=== PATIENT | female | born 1990 | race American Indian/Alaskan Native ===

== ENCOUNTER 2020-03-25 12:37 | Emergency (ER) | payer MEDICAID ==
--- NOTE | 2020-03-25 13:00 | Event Note ---
ED Screening Note Date of service: 03/25/20 Time: 12:57 ED Screening Note: 29-year-old -Congolese female presents to the emergency room reporting shortness of breath. Patient is still anxious, crying, states that she cannot feel her fingers. Patient also noted to have a rapid breathing pattern shaking her legs. Denies any past medical history or chest pain. This initial assessment/diagnostic orders/clinical plan/treatment(s) is/are subject to change based on patients health status, clinical progression and re- assessment by fellow clinical providers in the ED. Further treatment and workup at subsequent clinical providers discretion. Patient/guardian urged not to elope from the ED as their condition may be serious if not clinically assessed and managed. Initial orders include:
--- NOTE | 2020-03-25 14:09 | XRay Report ---
CHEST PA AND LATERAL VIEWS INDICATION: sob,cough and rales. COMPARISON: 04/07/2008 FINDINGS: Support devices: None Heart: Normal and unchanged Lungs/Pleura: No acute pulmonary or pleural findings. IMPRESSION: 1. No acute disease and no interval change. Signer Name: Zheng Macias MD Signed: 03/25/2020 2:05 PM Workstation Name: [id number]
[2020-03-25 14:25] LABS: Basophils % (Auto) 0.6 % (0.0-1.8); Eosinophils % (Auto) 0.4 % (0.0-4.3); Hemoglobin 13.1 gm/dl (10.1-14.3); Lymphocytes # (Auto) 0.8 K/mm3 (1.2-5.4); Lymphocytes % (Auto) 20.2 % (13.4-35.0); Mean Corpuscular HGB Conc 34 % (30-34); Mean Corpuscular Volume 98 fl (79-97); Monocytes # (Auto) 0.4 K/mm3 (0.0-0.8); Monocytes % (Auto) 10.4 % (0.0-7.3); Platelet Count 179 K/mm3 (140-440); Red Blood Count 3.96 M/mm3 (3.65-5.03); Red Cell Distribution Width 14.3 % (13.2-15.2)
[2020-03-25 14:33] LABS: Alanine Aminotransferase 112 units/L (7-56); Albumin 4.7 g/dL (3.9-5); Blood Urea Nitrogen 4 mg/dL (7-17); Calcium 9.8 mg/dL (8.4-10.2); Hemolysis Index 4
[2020-03-25 14:34] LABS: BUN/Creatinine Ratio 7
[2020-03-25] MEDS ORDERED: ONDANSETRON 4 MG/2 ML INJ IV ONE (17:00)
--- NOTE | 2020-03-25 17:06 | Emergency Department Report ---
<ALE ROUSSEAU - Last Filed: 03/25/20 19:06> ED General Adult HPI - General Chief complaint: Dyspnea/Respdistress Stated complaint: SHORTNESS OF BREATH PUI?: No Time Seen by Provider: 03/25/20 16:20 Source: patient Mode of arrival: Ambulatory Limitations: No Limitations - History of Present Illness Initial comments: 29-year-old female with a history of anemia but otherwise no significant past medical history presents to the ER today complaint of not feeling well. Patient states that when she got to work this morning she started shaking all over, feeling lightheaded, dizzy, palpitations, substernal chest pressure and shortness of breath. She states that she did vomit once this morning. Patient denies any history of psych disorders including anxiety or depression but she does report increased stress at work. She denies any URI symptoms, fever, chills, cough, calf pain or leg swelling. She denies any UTI symptoms, vaginal symptoms or abdominal pain. She states that her last menstrual cycle was 2 weeks ago. She denies any illicit drug use, significant caffeine use, or alcohol abuse. She denies similar symptoms in the past. MD Complaint: "shaking" all over, lightheaded, chest pain, SOB, vomiting -: Sudden (this morning) Location: chest Severity scale (0 -10): 0 - Related Data Previous Rx's Medication Instructions Recorded Last Taken Type Fluconazole (Nf) [Diflucan TAB] 150 mg PO ONCE #2 tablet 03/25/20 Unknown Rx Ibuprofen [Motrin] 600 mg PO Q8H PRN #30 tablet 03/25/20 Unknown Rx cephALEXin [Keflex] 500 mg PO Q8HR #30 cap 03/25/20 Unknown Rx hydrOXYzine HCL [Atarax] 25 mg PO BID PRN #20 tablet 03/25/20 Unknown Rx Allergies Allergy/AdvReac Type Severity Reaction Status Date / Time No Known Allergies Allergy Unverified 10/03/15 07:22 ED Review of Systems Constitutional: denies: chills, fever ENT: denies: ear pain, throat pain Respiratory: shortness of breath. denies: cough, wheezing Cardiovascular: chest pain Endocrine: no symptoms reported Gastrointestinal: nausea, vomiting. denies: abdominal pain, diarrhea, constipation, hematemesis, hematochezia Genitourinary: denies: urgency, dysuria, discharge Musculoskeletal: denies: back pain, joint swelling, arthralgia Neurological: other (dizzy, "shaking all over") Psychiatric: anxiety. denies: depression, auditory hallucinations, visual hallucinations, homicidal thoughts, suicidal thoughts ED Past Medical Hx - Past Medical History Previous Medical History?: No - Surgical History Past Surgical History?: No - Social History Smoking Status: Never Smoker Substance Use Type: None - Medications Home Medications: Home Medications Medication Instructions Recorded Confirmed Last Taken Type Fluconazole (Nf) [Diflucan TAB] 150 mg PO ONCE #2 tablet 03/25/20 Unknown Rx Ibuprofen [Motrin] 600 mg PO Q8H PRN #30 tablet 03/25/20 Unknown Rx cephALEXin [Keflex] 500 mg PO Q8HR #30 cap 03/25/20 Unknown Rx hydrOXYzine HCL [Atarax] 25 mg PO BID PRN #20 tablet 03/25/20 Unknown Rx ED Physical Exam - General Limitations: No Limitations General appearance: alert, in no apparent distress - Head Head exam: Present: atraumatic, normocephalic, normal inspection - Eye Eye exam: Present: normal appearance, PERRL, EOMI Pupils: Present: normal accommodation - ENT ENT exam: Present: normal exam, mucous membranes moist - Neck Neck exam: Present: normal inspection, full ROM. Absent: tenderness, meningismus - Respiratory Respiratory exam: Present: normal lung sounds bilaterally. Absent: respiratory distress - Cardiovascular Cardiovascular Exam: Present: normal rhythm, tachycardia, normal heart sounds - GI/Abdominal GI/Abdominal exam: Present: soft. Absent: distended, tenderness - Extremities Exam Extremities exam: Absent: pedal edema, calf tenderness - Neurological Exam Neurological exam: Present: alert, oriented X3, CN II-XII intact, normal gait - Psychiatric Psychiatric exam: Present: normal affect, normal mood - Skin Skin exam: Present: intact ED Medical Decision Making - Lab Data Result diagrams: 03/25/20 13:28 03/25/20 13:23 - EKG Data EKG shows normal: sinus rhythm Rate: tachycardia (120) - Radiology Data Radiology results: report reviewed - Medical Decision Making 1850 -- Pt resting comfortably, and does not appear to be in any distress. She reports some mild pressure in chest but otherwise she feels better. CXR shows nothing acute. Pt HR improved during stay, now down to 97. She is afebrile, with nl pulse Ox and respiratory rate. Pt does not appear toxic or ill appearing nor significantly dehydrated. She is currently mentally stable and neurologically intact. Reviewed her labs, AST/ALT elevated at 125/112 (pt reports she only drinks occasionally), otherwise remaining labs including trop, ddimer and tsh wnl. Exact cause of patient's symptoms unclear at this time it could be anxiety/stress related but there is no indication any further testing, for admi ssion, or emergent consult at this time. Discussed results with patient she will be given referral to local primary care doctor for follow-up; patient was stable at time of discharge. Patient expressed understanding of instructions and agree with plan. ED Disposition Clinical Impression: Acute urinary tract infection, Anxiety as acute reaction to exceptional stress, Episode of shaking, Atypical chest pain Disposition: TO HOME OR SELFCARE Is pt being admited?: No Does the pt Need Aspirin: No Condition: Stable Instructions: Nonspecific Chest Pain, Adult, [id number], Panic Attack, Chest Pain (ED), Urinary Tract Infection, Adult, [id number] Additional Instructions: Take the medication prescribed to you as directed. I recommend that you follow- up with the primary care doctor listed on your discharge instructions next week. Return to the ER if your symptoms changes or worsens in any way. Prescriptions: hydrOXYzine HCL [Atarax] 25 mg PO BID PRN #20 tablet PRN Reason: Anxiety/Shaking Fluconazole (Nf) [Diflucan TAB] 150 mg PO ONCE #2 tablet cephALEXin [Keflex] 500 mg PO Q8HR #30 cap Ibuprofen [Motrin] 600 mg PO Q8H PRN #30 tablet PRN Reason: Pain Referrals: NELL LANG MD [Staff Physician] - 3-5 Days Forms: Work/School Release Form(ED) Time of Disposition: 19:12 Print Language: COMORAN <MITESH BERNAL - Last Filed: 03/25/20 20:01> ED Review of Systems ROS: Stated complaint: SHORTNESS OF BREATH Other details as noted in HPI ED Course Vital Signs 03/25/20 03/25/20 12:39 18:57 Temperature 98.2 F 98.2 F Pulse Rate 142 H 84 Respiratory 24 20 Rate Blood Pressure 157/101 142/88 [Right] O2 Sat by Pulse 100 100 Oximetry ED Medical Decision Making - Lab Data Result diagrams: 03/25/20 13:28 03/25/20 13:23 - Medical Decision Making I think of the patient from Ms. Kaela Leblanc PA-C at shift change at 1900 hrs. Patient had been in the ED with complaint of acute onset tachycardia, anxi ety symptoms and was worked up thoroughly for PE rule out as well as any cardiopulmonary abnormalities. On reevaluation, patient's vital signs improved significantly with tachycardia resolving, lab test results were reviewed and showed transaminitis and UTI with a negative D-dimer and troponin levels. Patient was discharged home on medications including antibiotics for UTI. Patient was discharged home and advised to follow-up with her primary care physician in 7 to 10 days for reevaluation or return to the ED immediately if symptoms get worse. - Differential Diagnosis UTI; dehydration; anxiety; PE; ACS; Critical care attestation.: If time is entered above; I have spent that time in minutes in the direct care of this critically ill patient, excluding procedure time.
[2020-03-25] MEDS ORDERED: SODIUM CHLORIDE 0.9% 1000 ML 1,000 ML IV ONE (17:08)
[2020-03-25] MEDS ORDERED: KETOROLAC 30 MG/1 ML INJ IV ONE (18:51)
[2020-03-25 18:59] VITALS: BP 142/88
[2020-03-25 19:05] LABS: Amphetamine Screen,Urine PRESUMPTIVE NEGATIVE; Benzodiazepines Screen,Urine PRESUMPTIVE NEGATIVE; Cannabinoid Screen,Urine PRESUMPTIVE NEGATIVE; Cocaine Screen,Urine PRESUMPTIVE NEGATIVE; Methadone Screen,Urine PRESUMPTIVE NEGATIVE; Opiate Screen,Urine PRESUMPTIVE NEGATIVE
[2020-03-25 19:17] LABS: Bacteria,Urine 1+ /HPF (Negative); Bilirubin,Urine NEG (Negative); Blood,Urine NEG (Negative); Color,Urine Yellow (Yellow); Hyaline Casts,Urine 2 /LPF; Mucus,Urine FEW /HPF; Protein,Urine <15 mg/dL mg/dL (Negative); Urobilinogen,Urine < 2.0 mg/dL (<2.0)
== END 2020-03-25 20:13 | disposition home or self-care (01) ==
LOC: ED 12:37
DX: N39.0 Urinary tract infection, site not specified (principal); F41.1 Generalized anxiety disorder; F43.0 Acute stress reaction; R07.89 Other chest pain; R25.1 Tremor, unspecified; Z79.1 Long term (current) use of non-steroidal anti-inflammatories (NSAID); Z79.899 Other long term (current) drug therapy
CPT/HCPCS: 36415; 71046; 80053; 80307; 81001; 84443; 84484; 84703; 85025; 85379; 87086; 93005; 96361; 96374; 96375; 99284; J1885; J2405; J7030

== ENCOUNTER 2021-08-04 09:12 | Emergency (ER) | payer MEDICAID ==
[2021-08-04 09:27] VITALS: BP 125/74
--- NOTE | 2021-08-04 09:34 | Emergency Department Report ---
ED ENT HPI - General Chief complaint: Dental/Oral Stated complaint: DENTAL PAIN Time Seen by Provider: 08/04/21 09:33 Source: patient Mode of arrival: Ambulatory Limitations: No Limitations - History of Present Illness Initial comments: Patient is a 30-year-old female that comes to the emergency department with left lower molar pain. She does have a dentist appointment next Saturday. However the pain is so bad that she comes to the ER. A dentist that she is seeing did not put her on antibiotics. ABCs intact. Vital signs stable. No trismus. No Ludewig's. No abscess. Patient controlling secretions. MD complaint: tooth pain -: Gradual, days(s) Severity: moderate Severity scale (0 -10): 6 Quality: aching Consistency: constant Improves with: none Worsens with: none Context- Dental: history of dental caries Associated Symptoms: toothache - Related Data Previous Rx's Medication Instructions Recorded Last Taken Type Fluconazole (Nf) [Diflucan TAB] 150 mg PO ONCE #2 tablet 03/25/20 Unknown Rx Ibuprofen [Motrin] 600 mg PO Q8H PRN #30 tablet 03/25/20 Unknown Rx cephALEXin [Keflex] 500 mg PO Q8HR #30 cap 03/25/20 Unknown Rx hydrOXYzine HCL [Atarax] 25 mg PO BID PRN #20 tablet 03/25/20 Unknown Rx Amoxicillin [Trimox CAP] 500 mg PO BID #20 capsule 08/04/21 Unknown Rx Allergies Allergy/AdvReac Type Severity Reaction Status Date / Time No Known Allergies Allergy Unverified 10/03/15 07:22 ED Dental HPI - General Chief complaint: Dental/Oral Stated complaint: DENTAL PAIN Time Seen by Provider: 08/04/21 09:33 Source: patient Mode of arrival: Ambulatory Limitations: No Limitations - Related Data Previous Rx's Medication Instructions Recorded Last Taken Type Fluconazole (Nf) [Diflucan TAB] 150 mg PO ONCE #2 tablet 03/25/20 Unknown Rx Ibuprofen [Motrin] 600 mg PO Q8H PRN #30 tablet 03/25/20 Unknown Rx cephALEXin [Keflex] 500 mg PO Q8HR #30 cap 03/25/20 Unknown Rx hydrOXYzine HCL [Atarax] 25 mg PO BID PRN #20 tablet 03/25/20 Unknown Rx Amoxicillin [Trimox CAP] 500 mg PO BID #20 capsule 08/04/21 Unknown Rx Allergies Allergy/AdvReac Type Severity Reaction Status Date / Time No Known Allergies Allergy Unverified 10/03/15 07:22 ED Review of Systems ROS: Stated complaint: DENTAL PAIN Other details as noted in HPI Comment: All other systems reviewed and negative ED Past Medical Hx - Past Medical History Previous Medical History?: Yes Additional medical history: Anxiety - Surgical History Past Surgical History?: No - Family History Family history: no significant - Social History Smoking Status: Never Smoker Substance Use Type: None - Medications Home Medications: Home Medications Medication Instructions Recorded Confirmed Last Taken Type Fluconazole (Nf) [Diflucan TAB] 150 mg PO ONCE #2 tablet 03/25/20 Unknown Rx Ibuprofen [Motrin] 600 mg PO Q8H PRN #30 tablet 03/25/20 Unknown Rx cephALEXin [Keflex] 500 mg PO Q8HR #30 cap 03/25/20 Unknown Rx hydrOXYzine HCL [Atarax] 25 mg PO BID PRN #20 tablet 03/25/20 Unknown Rx Amoxicillin [Trimox CAP] 500 mg PO BID #20 capsule 08/04/21 Unknown Rx ED Physical Exam - General Limitations: No Limitations General appearance: alert, in no apparent distress - Head Head exam: Present: atraumatic, normocephalic - Eye Eye exam: Present: normal appearance - ENT ENT exam: Present: mucous membranes moist - Expanded ENT Exam Expanded Teeth exam: Present: dental caries 1 - Other (Caries) - Neck Neck exam: Present: normal inspection - Respiratory Respiratory exam: Present: normal lung sounds bilaterally. Absent: respiratory distress - Cardiovascular Cardiovascular Exam: Present: regular rate, normal rhythm. Absent: systolic murmur, diastolic murmur, rubs, gallop - GI/Abdominal GI/Abdominal exam: Present: soft, normal bowel sounds - Extremities Exam Extremities exam: Present: normal inspection - Back Exam Back exam: Present: normal inspection - Neurological Exam Neurological exam: Present: alert, oriented X3 - Psychiatric Psychiatric exam: Present: normal affect, normal mood - Skin Skin exam: Present: warm, dry, intact, normal color. Absent: rash ED Course Vital Signs 08/04/21 09:25 Temperature 98.5 F Pulse Rate 101 H Respiratory 16 Rate Blood Pressure 125/74 O2 Sat by Pulse 100 Oximetry ED Medical Decision Making - Medical Decision Making Dental pain, no abscess, Ludewig's or trismus Patient prescribed amoxicillin. She has a dental appointment on Saturday. Patient being discharged home with discharge plan of care including diet, medications, activity and follow-up. She verbalizes understanding of plan of care Vital Signs - 24 hr 08/04/21 09:25 Temperature 98.5 F Pulse Rate 101 H Respiratory 16 Rate Blood Pressure 125/74 O2 Sat by Pulse 100 Oximetry - Differential Diagnosis Dental pain Critical care attestation.: If time is entered above; I have spent that time in minutes in the direct care of this critically ill patient, excluding procedure time. ED Disposition Clinical Impression: Dental caries Disposition: HOME / SELF CARE / HOMELESS Is pt being admited?: No Does the pt Need Aspirin: No Condition: Stable Instructions: Preventive Dental Care, Adult Additional Instructions: Take antibiotic as prescribed. This will help with pain. It is only temporary. Follow-up with your dentist on Saturday as we discussed. Take [id number] Motrin and Tylenol for pain. Referrals: PRIMARY CARE, [Primary Care Provider] - 3-5 Days [facility] [Outside] - 3-5 Days Time of Disposition: 09:34
== END 2021-08-04 10:17 | disposition home or self-care (01) ==
LOC: ED 09:12
DX: K02.9 Dental caries, unspecified (principal); Z79.899 Other long term (current) drug therapy
CPT/HCPCS: 99282